=== PATIENT | male | born 1995 | race Caucasian/White ===

== ENCOUNTER 2017-09-06 06:13 | Emergency (ER) | payer OTHER ==
[2017-09-06] MEDS ORDERED: NS 1,000 ML IV ONE (06:18)
[2017-09-06 06:20] VITALS: RESP 16; TEMP 98.2
--- NOTE | 2017-09-06 06:20 | EDPHY ---
H & P Source: Patient, EMS Time Seen by Provider: 09/06/17 06:40 HPI/ROS: HPI CHIEF COMPLAINT: Seizure HISTORY OF PRESENT ILLNESS: Patient very pleasant 22-year-old male, otherwise healthy does at the history depression and anxiety, no history of seizures, he presents emergency room after his girlfriend called 911 for him having a 1 min what is described as generalized tonic-clonic seizure with postictal state discovered by EMS. Patient was postictal according to EMS. He has since cleared during transport to the emergency room and is alert and orient x4 upon arrival to the emergency room. He has never had a seizure before. No change in his medications. He takes Wellbutrin. He does smoke marijuana regularly and did smoke marijuana last night but denies any other alcohol or illicit drugs. Denies recent illness. Denies headache or stiff neck or fever. Past Medical History: Depression, anxiety Past Surgical History: No recent surgery Social History: Daily marijuana use. Denies illicit drugs or alcohol. Family History: Noncontributory ROS REVIEW OF SYSTEMS: A comprehensive 10 point review of systems is otherwise negative aside from elements mentioned in the history of present illness. Exam Constitutional appears well nontoxic triage nursing summary reviewed, vital signs reviewed, awake/alert. Eyes normal conjunctivae and sclera, EOMI, PERRLA. HENT normal inspection, atraumatic, moist mucus membranes, no epistaxis, neck supple/ no meningismus, no raccoon eyes. Respiratory clear to auscultation bilaterally, normal breath sounds, no respiratory distress, no wheezing. Cardiovascular rate normal, regular rhythm, no murmur, no edema, distal pulses normal. Gastrointestinal soft, non-tender, no rebound, no guarding, normal bowel sounds, no distension, no pulsatile mass. Genitourinary no CVA tenderness. Musculoskeletal no midline vertebral tenderness, full range of motion, no calf swelling, no tenderness of extremities, no meningismus, good pulses, neurovascularly intact. Skin pink, warm, & dry, no rash, skin atraumatic. Neurologic nonfocal normal neurological exam, awake, alert and oriented x 3, AAOx3, moves all 4 extremities equally, motor intact, sensory intact, CN II-XII intact, normal cerebellar, normal vision, normal speech. Psychiatric normal mood/affect. Heme/Lymph/Immune no lymphadenopathy. Differential Diagnosis: Includes but is not limited to in a particular order first-time seizure, intracranial bleed, brain tumor, electrolyte disturbance, drug intoxication Medical Decision Making: Plan for this patient CT scan head without contrast first-time seizure workup. Check urine drug screen, check basic blood work. EKG. Re-evaluation: EKG interpretation by me on record in [employer] system. Impression time of EKG 6:30 a.m., this is sinus rhythm 74. No signs of cardiac arrhythmia or acute ischemia. Unremarkable EKG. No WPW or Brug[place]. No prolonged intervals. 0635: Girlfriend at bedside now report that he had a Generalized tonic-clonic seizure lasting less than a minute. With a postictal state. 0701: Signed over to Dr. Chirinos 7am. Pending CT. (Fermin Galloway) Constitutional: Initial Vital Signs Temperature (C) 36.8 C 09/06/17 06:16 Heart Rate 96 09/06/17 06:16 Respiratory Rate 16 09/06/17 06:16 Blood Pressure 101/80 09/06/17 06:16 O2 Sat (%) 95 09/06/17 06:16 O2 Delivery Mode Room Air Allergies/Adverse Reactions: peanut Allergy (Verified 09/06/17 06:21) Medical Decision Making - Diagnostics Imaging Results: Imaging Impressions Head CT 09/06/17 06:19 Impression: Normal noncontrast CT of the brain. The study was performed as an emergency on-call case and discussed by telephone with Dr. Skyla Chirinos at 7:00 AM hrs. The final interpretation is concordant with the original communication. ED Course/Re-evaluation: 7:00 a.m.-I assumed care of this patient at shift change. He presents with a new onset generalized seizure. CT scan of the brain read by Dr. Norman Quezada is normal. CT scan results discussed with the patient. Seizure precautions given, including no driving until cleared by a neurologist. He will call Neurology this morning to make an appointment. (Skyla Chirinos) Differential Diagnosis: Differential diagnosis includes though it is not limited to status epilepticus, hypoglycemia, intracranial hemorrhage, CVA, benzodiazepine withdrawal, alcohol withdrawal, epilepsy. (Skyla Chirinos) - Data Points Laboratory Results: Laboratory Results 09/06/17 06:20 09/06/17 06:20 09/06/17 09/06/1709/06/18 06:30 06:20 06:20 WBC 7.26 10^3/uL 10^3/uL (3.80-9.50) RBC 5.82 10^6/uL 10^6/uL (4.40-6.38) Hgb 16.9 g/dL g/dL (13.7-17.5) Hct 51.8 % H % (40.0-51.0) MCV 89.0 fL fL (81.5-99.8) MCH 29.0 pg pg (27.9-34.1) MCHC 32.6 g/dL g/dL (32.4-36.7) RDW 12.4 % % (11.5-15.2) Plt Count 332 10^3/uL 10^3/uL (150-400) MPV 9.8 fL fL (8.7-11.7) Neut % (Auto) 38.8 % L % (39.3-74.2) Lymph % (Auto) 43.9 % % (15.0-45.0) [place] % (Auto) 9.4 % % (4.5-13.0) Eos % (Auto) 6.6 % % (0.6-7.6) Baso % (Auto) 1.0 % % (0.3-1.7) Nucleat RBC Rel Count 0.0 % % (0.0-0.2) Absolute Neuts (auto) 2.82 10^3/uL 10^3/uL (1.70-6.50) Absolute Lymphs (auto) 3.19 10^3/uL H 10^3/uL (1.00-3.00) Absolute Monos (auto) 0.68 10^3/uL 10^3/uL (0.30-0.80) Absolute Eos (auto) 0.48 10^3/uL H 10^3/uL (0.03-0.40) Absolute Basos (auto) 0.07 10^3/uL 10^3/uL (0.02-0.10) Absolute Nucleated RBC 0.00 10^3/uL 10^3/uL (0-0.01) Immature Gran % 0.3 % % (0.0-1.1) Immature Gran # 0.02 10^3/uL 10^3/uL (0.00-0.10) Sodium 147 mEq/L H mEq/L (135-145) Potassium 4.6 mEq/L mEq/L (3.5-5.2) Chloride 106 mEq/L mEq/L (97-110) Carbon Dioxide 15 mEq/l L mEq/l (22-31) Anion Gap 26 mEq/L H mEq/L (8-16) BUN 10 mg/dL mg/dL (7-23) Creatinine 0.9 mg/dL mg/dL (0.7-1.3) Estimated GFR > 60 Glucose 115 mg/dL H mg/dL (70-100) Calcium 10.1 mg/dL mg/dL (8.5-10.4) Urine Color YELLOW Urine Appearance CLEAR Urine pH 5.0 (5.0-7.5) Ur Specific [place] 1.013 (1.002-1.030) Urine Protein NEGATIVE (NEGATIVE) Urine Ketones NEGATIVE (NEGATIVE) Urine Blood NEGATIVE (NEGATIVE) Urine Nitrate NEGATIVE (NEGATIVE) Urine Bilirubin NEGATIVE (NEGATIVE) Urine Urobilinogen NEGATIVE EU EU (0.2-1.0) Ur Leukocyte Esterase NEGATIVE (NEGATIVE) Urine Glucose NEGATIVE (NEGATIVE) Urine Opiates Screen NEGATIVE (NEGATIVE) Urine Barbiturates NEGATIVE (NEGATIVE) Ur Phencyclidine Scrn NEGATIVE (NEGATIVE) Ur Amphetamine Screen NEGATIVE (NEGATIVE) U Benzodiazepines Scrn NEGATIVE (NEGATIVE) Urine Cocaine Screen NEGATIVE (NEGATIVE) U Marijuana (THC) Screen NEGATIVE (NEGATIVE) Medications Given: Discontinued Medications Sodium Chloride (Ns) 1,000 mls @ 0 mls/hr IV EDNOW ONE; Wide Open PRN Reason: Protocol Stop: 09/06/17 06:19 Last Admin: 09/06/17 06:31 Dose: 1,000 mls Departure - Departure Disposition: Home, Routine, Self-Care Clinical Impression: Seizure Condition: Good Instructions: New-Onset Seizure in Adults (ED) Additional Instructions: 1. No driving until you are cleared by a neurologist to drive. 2. No dangerous activities such as riding a ski lift, swimming in a pool or other behavior that could put you or someone else at risk in the event of a recurrent seizure. You will need to be cleared by a neurologist to resume these activities. 3. Please return to the ED for recurrent seizure, headache, numbness, weakness, altered mental status or other concerns. 4. Please call the referral neurologist promptly to schedule a follow-up appointment. Referrals: Wei Price MD [Medical Doctor] - As per Instructions
--- NOTE | 2017-09-06 06:34 | CPEKG ---
Heart Rate: 74 RR Interval: 811 P-R Interval: 120 QRSD Interval: 100 QT Interval: 372 QTC Interval: 413 P [place]: 73 QRS [place]: 82 T Wave [place]: 59 EKG Severity - NORMAL ECG - EKG Impression: SINUS RHYTHM Electronically Signed By: Osiel Rodriguez 06-Sep-2017 09:25:17
[2017-09-06 06:37] LABS: PLATELET COUNT 332 10^3/uL (150-400)
[2017-09-06 07:41] VITALS: BP 129/85; PULSE 82; O2SAT 97
== END 2017-09-06 07:30 | disposition home or self-care (01) ==
DX: R56.9 Unspecified convulsions (principal)
CPT/HCPCS: 80305

== ENCOUNTER 2017-12-12 01:48 | Emergency (ER) | payer OTHER ==
[2017-12-12] MEDS ORDERED: levETIRAcetam 1000MG/NACL 100 ML IV ONE (02:44)
[2017-12-12] MEDS ORDERED: IBUPROFEN 600 MG TAB PO ONE (02:44)
[2017-12-13 04:43] VITALS: BP 107/64
--- NOTE | 2017-12-13 05:14 | EDPHY ---
H & P Stated Complaint: pt to ed via ems, seizure with hx of same Time Seen by Provider: 12/12/17 03:00 HPI/ROS: HPI CHIEF COMPLAINT: Seizure HISTORY OF PRESENT ILLNESS: Patient is a 22-year-old male, presents emergency room after he had a generalized tonic-clonic seizure. This was in bed. At last 1-2 minutes according to his significant other. Postictal state. He is brought to the emergency room and states he feels nauseous but denies any other complaints. Alert and oriented or more lucid. He does have a history of a seizure most recently had a seizure a few weeks ago. This was his 1st time having seizure. This is currently his 2nd seizure. Past Medical History: Previous seizure Past Surgical History: No surgical history Social History smokes marijuana. Denies alcohol tobacco or drugs. Family History: Noncontributory ROS REVIEW OF SYSTEMS: A comprehensive 10 point review of systems is otherwise negative aside from elements mentioned in the history of present illness. Exam Constitutional triage nursing summary reviewed, vital signs reviewed, awake/ alert. Eyes normal conjunctivae and sclera, EOMI, PERRLA. HENT normal inspection, atraumatic, moist mucus membranes, no epistaxis, neck supple/ no meningismus, no raccoon eyes. Respiratory clear to auscultation bilaterally, normal breath sounds, no respiratory distress, no wheezing. Cardiovascular rate normal, regular rhythm, no murmur, no edema, distal pulses normal. Gastrointestinal soft, non-tender, no rebound, no guarding, normal bowel sounds, no distension, no pulsatile mass. Genitourinary no CVA tenderness. Musculoskeletal no midline vertebral tenderness, full range of motion, no calf swelling, no tenderness of extremities, no meningismus, good pulses, neurovascularly intact. Skin pink, warm, & dry, no rash, skin atraumatic. Neurologic awake, alert and oriented x 3, AAOx3, moves all 4 extremities equally, motor intact, sensory intact, CN II-XII intact, normal cerebellar, normal vision, normal speech. Psychiatric normal mood/affect. Heme/Lymph/Immune no lymphadenopathy. Differential Diagnosis: Includes but is not limited to in a particular order epilepsy, electrolyte disturbance, acute seizure, generalized tonic-clonic seizure, dehydration, marijuana abuse Medical Decision Making: Plan for this patient IV establishment blood draw, check electrolytes, CT scan head without contrast, 1 g of Keppra, 1 L normal saline, IV Zofran. Re-evaluate. Re-evaluation: CT scan head without contrast negative for acute abnormality. Called to me by Dr. Tidwell. Patient's blood work is reviewed. He did have a low bicarb indicating seizure. He has not had any seizure here in emergency room. Patient will need to follow up with Neurology. This is his 2nd seizure. I have also ordered oral Keppra. He has received 1 g of IV Keppra here in emergency room. Given that this is his 2nd seizure needs follow-up with Neurology. He does state that he saw Neurology 3 months ago. And had a full seizure workup including MRI and CT head with and without contrast these were unremarkable he was not started on seizure medications as this was a first-time seizure. He did see Dr. Price previously. I recommend he follows back up with him. Additionally I spoke with him he understands he cannot drive until he is cleared by Neurology. Return precautions discussed with me understands return emergency room if develops any worsening symptoms including recurrent seizure activity. Source: Patient - Medical/Surgical History Hx Asthma: No Hx Chronic Respiratory Disease: No Hx Diabetes: No Hx Cardiac Disease: No Hx Renal Disease: No Hx Cirrhosis: No Hx Alcoholism: No Hx HIV/AIDS: No Hx Splenectomy or Spleen Trauma: No Other PMH: depression anxiety, sz - Social History Smoking Status: Never smoked Constitutional: Initial Vital Signs Temperature (C) 36.7 C 12/12/17 01:50 Heart Rate 104 H 12/12/17 01:50 Respiratory Rate 18 12/12/17 01:50 Blood Pressure 124/63 H 12/12/17 01:50 O2 Sat (%) 96 12/12/17 01:50 O2 Delivery Mode Room Air Allergies/Adverse Reactions: peanut Allergy (Verified 09/06/17 06:21) Departure - Departure Disposition: Home, Routine, Self-Care Clinical Impression: Seizure Condition: Good Instructions: Epilepsy (ED) Referrals: NONE *PRIMARY CARE P,. [Primary Care Provider] - As per Instructions Wei Price MD [Medical Doctor] - As per Instructions
--- NOTE | 2017-12-13 14:56 | EDPHY ---
[facility] Patient Name: JORGE LARSON Rpt#: [id number] Unit Number: [id number] ER Physician: Fermin Galloway MD Patient Type: REG ER Adm Date/Source: 12/12/17 EMR Discharge Date: Primary Carrier: [employer] EMERGENCY DEPARTMENT PROVIDER REPORT H P Time Seen by Provider: 12/12/17 07:22 HPI/ROS: HPI CHIEF COMPLAINT: Seizure HISTORY OF PRESENT ILLNESS: Patient is a 22-year-old male, presents emergency room after he had a generalized tonic-clonic seizure. This was in bed. At last 1-2 minutes according to his significant other. Postictal state. He is brought to the emergency room and states he feels nauseous but denies any other complaints. Alert and oriented or more lucid. He does have a history of a seizure most recently had a seizure a few weeks ago. This was his 1st time having seizure. This is currently his 2nd seizure. Past Medical History: Previous seizure Past Surgical History: No surgical history Social History smokes marijuana. Denies alcohol tobacco or drugs. Family History: Noncontributory ROS REVIEW OF SYSTEMS: A comprehensive 10 point review of systems is otherwise negative aside from elements mentioned in the history of present illness. Exam Constitutional triage nursing summary reviewed, vital signs reviewed, awake/alert. Eyes normal conjunctivae and sclera, EOMI, PERRLA. HENT normal inspection, atraumatic, moist mucus membranes, no epistaxis, neck supple/ no meningismus, no raccoon eyes. Respiratory clear to auscultation bilaterally, normal breath sounds, no respiratory distress, no wheezing. Cardiovascular rate normal, regular rhythm, no murmur, no edema, distal pulses normal. Gastrointestinal soft, non-tender, no rebound, no guarding, normal bowel sounds, no distension, no pulsatile mass. Genitourinary no CVA tenderness. Musculoskeletal no midline vertebral tenderness, full range of motion, no calf swelling, no tenderness of extremities, no meningismus, good pulses, neurovascularly intact. Skin pink, warm, dry, no rash, skin atraumatic. Neurologic awake, alert and oriented x 3, AAOx3, moves all 4 extremities equally, motor intact, sensory intact, CN II-XII intact, normal cerebellar, normal vision, normal speech. Psychiatric normal mood/affect. Heme/Lymph/Immune no lymphadenopathy. Differential Diagnosis: Includes but is not limited to in a particular order epilepsy, electrolyte disturbance, acute seizure, generalized tonic-clonic seizure, dehydration, marijuana abuse Medical Decision Making: Plan for this patient IV establishment blood draw, check electrolytes, CT scan head without contrast, 1 g of Keppra, 1 L normal saline, IV Zofran. Re-evaluate. Re-evaluation: CT scan head without contrast negative for acute abnormality. Called to me by Dr. Tidwell. Patient's blood work is reviewed. He did have a low bicarb indicating seizure. He has not had any seizure here in emergency room. Patient will need to follow up with Neurology. This is his 2nd seizure. I have also ordered oral Keppra. He has received 1 g of IV Keppra here in emergency room. Given that this is his 2nd seizure needs follow-up with Neurology. He does state that he saw Neurology 3 months ago. And had a full seizure workup including MRI and CT head with and without contrast these were unremarkable he was not started on seizure medications as this was a first-time seizure. He did see Dr. Price previously. I recommend he follows back up with him. Additionally I spoke with him he understands he cannot drive until he is cleared by Neurology. Return precautions discussed with me understands return emergency room if develops any worsening symptoms including recurrent seizure activity. Source: Patient - Medical/Surgical History Hx Asthma: No Hx Chronic Respiratory Disease: No Hx Diabetes: No Hx Cardiac Disease: No Hx Renal Disease: No Hx Cirrhosis: No Hx Alcoholism: No Hx HIV/AIDS: No Hx Splenectomy or Spleen Trauma: No Other PMH: depression anxiety - Social History Smoking Status: Never smoked Allergies/Adverse Reactions: peanut Allergy (Verified 09/06/17 06:21) Medical Decision Making - Data Points Laboratory Results: 12/12/17 12/12/17 12/12/17 02:40 02:40 02:12 Sodium Pending Potassium Pending Chloride Pending Carbon Dioxide Pending Anion Gap Pending BUN Pending Creatinine Pending Estimated GFR Pending Glucose Pending Calcium Pending Urine Color YELLOW Urine Appearance CLEAR Urine pH 6.0 (5.0-7.5) Ur Specific [place] 1.015 (1.002-1.030) Urine Protein NEGATIVE (NEGATIVE) Urine Ketones NEGATIVE (NEGATIVE) Urine Blood NEGATIVE (NEGATIVE) Urine Nitrate NEGATIVE (NEGATIVE) Urine Bilirubin NEGATIVE (NEGATIVE) Urine Urobilinogen NEGATIVE EU EU (0.2-1.0) Ur Leukocyte Esterase NEGATIVE (NEGATIVE) Urine Glucose NEGATIVE (NEGATIVE) Urine Opiates Screen Pending Urine Barbiturates Pending Ur Phencyclidine Scrn Pending Ur Amphetamine Screen Pending U Benzodiazepines Scrn Pending Urine Cocaine Screen Pending U Marijuana (THC) Screen Pending Departure - Departure Disposition: Home, Routine, Self-Care Clinical Impression: Seizure Condition: Good Instructions: Epilepsy (ED) Additional Instructions: 1. Do not drive into your cleared by Neurology 2. Follow-up with Neurology. Call their for follow-up appointment. Referrals: NONE *PRIMARY CARE P,. [Primary Care Provider] - As per Instructions Wei Price MD [Medical Doctor] - As per Instructions *This report may have been compiled using a voice recognition system, and might contain typographical errors and blanks.* Fermin Galloway MD 12/12/17 0748 <Electronically signed by Fermin Galloway MD> 7 T: JUAN 12/12/17737 CC: NONE *PRIMARY CARE PHYS ONLY*
== END 2017-12-12 03:35 | disposition home or self-care (01) ==
DX: G40.909 Epilepsy, unspecified, not intractable, without status epilepticus (principal)
CPT/HCPCS: J1953